=== PATIENT | female | born 1965 | race Caucasian/White ===

== ENCOUNTER 2017-06-04 14:24 | Emergency (ER) | payer OTHER ==
[~2017-06-04] VITALS: Ht 167.6 cm; Wt 73.7 kg
[2017-06-04 14:44] VITALS: BP 111/79
== END 2017-06-04 17:37 | disposition home or self-care (01) ==
LOC: ED 14:24
DX: S83.242A Other tear of medial meniscus, current injury, left knee, initial encounter (principal); Z88.5 Allergy status to narcotic agent; X58.XXXA Exposure to other specified factors, initial encounter; Y93.89 Activity, other specified; Y99.8 Other external cause status; Y92.89 Other specified places as the place of occurrence of the external cause

== ENCOUNTER 2017-07-05 17:13 | Emergency (ER) | payer OTHER ==
[~2017-07-05] VITALS: Ht 167.6 cm; Wt 73.0 kg
[2017-07-05 18:56] LABS: UA SPECIFIC GRAVITY 1.025 (1.005-1.035); microscopic required? YES; urine erythrocyte 3+ (NEGATIVE)
[2017-07-05 19:16] LABS: BASOPHIL % 0.1 % (0-2); PLATELET COUNT 288 x10^3mcL (130-400); RED CELL DISTRIBUTION WIDTH 14.3 % (11.5-14.5)
[2017-07-05 19:18] LABS: CALCIUM 9.4 mg/dL (8.5-10.1); CARBON DIOXIDE 29.5 mmol/L (21-32); CHLORIDE SERUM 102 mmol/L (98-107); CREATININE SERUM 0.9 mg/dL (0.6-1.0); GFR1 > 60 mL/min; GLUCOSE SERUM 112 mg/dL (74-106); POTASSIUM SERUM 3.7 mmol/L (3.5-5.1); SODIUM SERUM 140 mmol/L (136-145)
[2017-07-05 19:24] LABS: ALBUMIN 4.4 g/dL (3.4-5.0); ALKALINE PHOSPHATASE 138 U/L (46-116); ALT/SGPT 47 U/L (14-59); AST/SGOT 33 U/L (15-37); BILIRUBIN TOTAL 1.1 mg/dL (0.20-1.00)
[2017-07-05 19:25] LABS: TOTAL PROTEIN, SERUM 8.4 g/dL (6.4-8.2)
[2017-07-05 21:35] VITALS: BP 103/74
== END 2017-07-05 21:35 | disposition home or self-care (01) ==
LOC: ED 17:13
PROVIDERS: Specialist
DX: N10 Acute pyelonephritis (principal); G89.29 Other chronic pain; Z88.5 Allergy status to narcotic agent
CPT/HCPCS: J0696; J1885; J2270; J2405; J3490; J7030; Q0162